=== PATIENT | female | born 1950 | race Caucasian/White ===

== ENCOUNTER 2019-06-18 15:31 | Inpatient (IN) | payer MEDICARE, OTHER ==
[~2019-06-18] VITALS: Ht 160 cm; Wt 96.3 kg
[2019-06-18] MEDS ORDERED: NS IV 1000 ML 1,000 ML IV SCH ×3 (16:08→20:45)
[2019-06-18] MEDS ORDERED: morphine INJ 10 MG/ML 1ML (SYR OR VIAL) IVP STA (16:08)
--- NOTE | 2019-06-18 16:15 | ED Cardiac General ---
History of Present Illness General Chief Complaint: Chest Pain Stated Complaint: CHEST PAIN Nursing Triage Note: Chest pain started approximately 3 hours ago. Is sometimes sharp through the chest with pressure and radiates down left arm. Had similar symptoms several years ago when she had a stent put in. History of Present Illness Date Seen by Provider: Jun 18, 2019 Time Seen by Provider: 15:50 Initial Comments The patient is a 69-year-old female with a history of hypertension, hyperlipidemia, coronary artery disease with a stent in place, prediabetes. She presents with concern for 3 hours of waxing and waning left upper back discomfort with radiation around to the left upper chest and down the left arm, with associated generalized substernal chest pressure. Symptoms had onset while the patient was at rest, sitting down at home. Symptoms are a 7-8/10 in severity at present. Patient states they feel exactly like the "heart pain" she had here a few years ago before she was sent downt to [place] and was stented. Associated nausea without vomiting. No associated fevers, cough, shortness of breath, midline interscapular back pain which is ripping or tearing in character, cold sweats or chills, abdominal pain, flank pain. Vital signs are generally reassuring aside from some hypertension here in the emergency department. EKG obtained from triage appears nonischemic. Allergies and Home Medications Allergies Coded Allergies: No Known Drug Allergies (Unverified , 06/18/19) Patient Home Medication List Home Medication List Reviewed: Yes Review of Systems Review of Systems Constitutional: see HPI All Other Systems Reviewed Negative Unless Noted: Yes (Negative excepted noted.) Past Xjqkpmd-Oexjuy-Iytavi Hx Past Med/Social Hx: Reviewed Nursing Past Med/Soc Hx Patient Social History Recent Foreign Travel: No Contact w/Someone Who Travel: No Recent Infectious Disease Expo: No Family Medical History Reviewed Nursing Family Hx Physical Exam Vital Signs Vital Signs - First Documented 06/18/19 15:40 Temp 36.2 Pulse 74 Resp 20 B/P (MAP) 173/73 (106) Pulse Ox 95 Capillary Refill : Less Than 3 Seconds Height, Weight, BMI Height: '" Weight: lbs. oz. kg; 38.00 BMI Method: General Appearance: No Apparent Distress Other comments This is an older female appearing nontoxic and in no acute distress. Head is normocephalic and atraumatic. Neck is supple and nontender. Oropharynx is moist. Lungs are clear to auscultation in all stations. There is a normal S1 and S2 without rubs or gallops and capillary refill is appropriate, less than 2 seconds globally. There is no pulse deficit with 2+ pulses to the bilateral upper and lower extremities. Abdomen is soft, nontender and nondistended with no pulsatile mass noted. Skin is warm and dry without cyanosis, clubbing or edema. Psychiatrically, the patient didn't straights appropriate mood and affect and is alert. Progress/Results/Core Measures Results/Orders Lab Results Laboratory Tests Test 06/18/19 15:46 Range/Units White Blood Count 12.1 H 4.3-11.0 10^3/uL Red Blood Count 4.69 4.35-5.85 10^6/uL Hemoglobin 12.9 11.5-16.0 G/DL Hematocrit 41 35-52 % Mean Corpuscular Volume 87 80-99 FL Mean Corpuscular Hemoglobin 28 25-34 PG Mean Corpuscular Hemoglobin Concent 32 32-36 G/DL Red Cell Distribution Width 15.7 H 10.0-14.5 % Platelet Count 416 H 130-400 10^3/uL Mean Platelet Volume 9.2 7.4-10.4 FL Neutrophils (%) (Auto) 68 42-75 % Lymphocytes (%) (Auto) 18 12-44 % Monocytes (%) (Auto) 9 0-12 % Eosinophils (%) (Auto) 4 0-10 % Basophils (%) (Auto) 1 0-10 % Neutrophils # (Auto) 8.3 H 1.8-7.8 X 10^3 Lymphocytes # (Auto) 2.2 1.0-4.0 X 10^3 Monocytes # (Auto) 1.0 0.0-1.0 X 10^3 Eosinophils # (Auto) 0.5 H 0.0-0.3 10^3/uL Basophils # (Auto) 0.1 0.0-0.1 10^3/uL Prothrombin Time 13.0 12.2-14.7 SEC INR Comment 1.0 0.8-1.4 Activated Partial Thromboplast Time 28 24-35 SEC Sodium Level 139 135-145 MMOL/L Potassium Level 4.3 3.6-5.0 MMOL/L Chloride Level 100 98-107 MMOL/L Carbon Dioxide Level 26 21-32 MMOL/L Anion Gap 13 5-14 MMOL/L Blood Urea Nitrogen 17 7-18 MG/DL Creatinine 0.88 0.60-1.30 MG/DL Estimat Glomerular Filtration Rate > 60 BUN/Creatinine Ratio 19 Glucose Level 103 70-105 MG/DL Calcium Level 9.5 8.5-10.1 MG/DL Corrected Calcium 9.5 8.5-10.1 MG/DL Total Bilirubin 0.4 0.1-1.0 MG/DL Aspartate Amino Transf (AST/SGOT) 14 5-34 U/L Alanine Aminotransferase (ALT/SGPT) 16 0-55 U/L Alkaline Phosphatase 95 40-136 U/L Troponin I < 0.30 <0.30 NG/ML Pro-B-Type Natriuretic Peptide 57.3 <75.0 PG/ML Total Protein 7.2 6.4-8.2 GM/DL Albumin 4.0 3.2-4.5 GM/DL My Orders Orders - YA RODRIGUEZ MD Cbc With Automated Diff (06/18/19 15:45) Comprehensive Metabolic Panel (06/18/19 15:45) Troponin I Fs (06/18/19 15:45) Ekg Tracing (06/18/19 15:45) Chest 1 View Ap/Pa Only (06/18/19 15:45) Probnp Fs (06/18/19 15:45) Protime With Inr (06/18/19 15:45) Partial Thromboplastin Time (06/18/19 15:45) Morphine Injection (Morphine Injection (06/18/19 16:08) Ed Iv/Invasive Line Start (06/18/19 16:08) Ns Iv 1000 Ml (Sodium Chloride 0.9%) (06/18/19 16:08) Nitroglycerin 0.4 Mg Btl 25's (Nitrostat (06/18/19 16:30) Ct Angio Chest W (06/18/19 16:18) Ondansetron Injection (Zofran Injectio (06/18/19 16:21) Ondansetron Injection (Zofran Injectio (06/18/19 16:30) Iohexol Injection (Omnipaque 350 Mg/Ml 1 (06/18/19 16:45) Received Contrast (Hold Metformin- Contr (06/18/19 16:45) Ns (Ivpb) (Sodium Chloride 0.9% Ivpb Bag (06/18/19 16:45) Ns Iv 1000 Ml (Sodium Chloride 0.9%) (06/18/19 17:06) Nitro Drip 89357 Mcg/D5w (Nitroglycerin (06/18/19 17:06) Medications Given in ED Current Medications Medications Dose Ordered Sig/Mary Route Start Time Stop Time Status Last Admin Dose Admin Iohexol 125 ml ONCE ONCE IV 06/18/19 16:45 06/18/19 16:46 DC 06/18/19 16:45 125 ML Nitroglycerin 1 TAB Q 5 MIN X 3 NEEDED PRN SL 06/18/19 16:30 06/18/19 16:53 0.4 MG Ondansetron HCl 4 mg ONCE ONCE IVP 06/18/19 16:30 06/18/19 16:31 DC 06/18/19 16:28 4 MG Sodium Chloride 100 ml ONCE ONCE IV 06/18/19 16:45 06/18/19 16:46 DC 06/18/19 16:45 80 ML Vital Signs/I&O 06/18/19 06/18/19 15:40 17:26 Temp 36.2 Pulse 74 56 Resp 20 B/P (MAP) 173/73 (106) Pulse Ox 95 Blood Pressure Mean: 106 POS Progress Progress Note : Time: 16:15 Progress Note Older female with known coronary artery disease status post stenting 3 years ago and [place] and without close cardiology follow-up since that time presents with an episode of concerning left scapular and left upper chest and left arm discomfort with associated substernal chest pressure which she states feels just like the anginal chest pain she had 3 years ago. Associated nausea. Hypertensive here. We will check labs and EKG and chest x-ray and will obtain CT angiography of the chest to rule out dissection given back pain and hypertension although low suspicion for this at this time based on overall clinical picture. Patient took an aspirin prior to arrival today. We'll give nitroglycerin sublingually and small dose of morphine and we'll then reevaluate. Update 1700: Workup unremarkable and reassuring including negative cardiac biomarkers. Patient had transient relief of discomfort with sublingual nitroglycerin and a small dose of morphine but pain is now back and is rather severe. We are still pending CT results at this time. Case discussed with Dr. Bojorquez who recommends nitroglycerin drip and additional IV fluids and admission to [place] -- patient will need the ICU due to nitro drip. Case is discussed with Dr. Boyer (Pineda is PCP) who graciously accepts for [facility] group ICU admission to [place]. Family updated on findings of workup and plan for admission and understand and agree in all questions are answered. We'll proceed with transfer as soon as CT results are back. Update 1750: CT aortogram negative for dissection, aneurysm or other acute abnormality. Pain at a 2/10 on nitro gtt, much improved. Stable for transport via EMS to [place] as per plan above. Comment Sinus rhythm, rate 72, no acute ST elevation or depression, ME 178, QRS 92, QTC 390, EP interpretation. Diagnostic Imaging Comments PROCEDURE: CT angiography of the chest with contrast. TECHNIQUE: Multiple contiguous axial images were obtained through the chest after uneventful bolus administration of intravenous contrast. 3D reconstructed CTA MIP acquisitions were also performed. Auto Exposure Controls were utilized during the CT exam to meet ALARA standards for radiation dose reduction. INDICATION: Chest pain. COMPARISON: There are no prior CTA examinations available for comparison. FINDINGS: The plain film examination of the chest performed prior to this study at 4:17 PM failed to show any sign of an acute cardiopulmonary abnormality. On this exam, there is no defect within the pulmonary arteries to indicate a pulmonary embolus. The smaller branches of the pulmonary arteries to the right lower lobes, however, are not well opacified and difficult to assess. The aorta is not abnormally dilated. There is no sign of a dissection. The heart size is within normal limits. The lungs are generally clear. There is no evidence for failure, pneumonia or for a pleural effusion. There is mild dependent atelectasis in each lung base. There is no mediastinal or hilar adenopathy. The thyroid gland is not enlarged but there is a 1 cm low-density nodule in the right lobe. Ultrasound would be recommended for further study. There is no obvious breast mass. The sections through the upper abdomen failed to show any sign of an acute abnormality. There are several rounded areas of low density within the liver. The largest of these is in the left lobe and measures approximately 3.5 cm. I suspect that these findings are cysts. Ultrasound should be considered to confirm this. The bone windows show no evidence for a fracture or for a destructive lesion. IMPRESSION: 1. There is no evidence for a pulmonary embolus, although the pulmonary artery branches to the lower extremities are not well opacified and difficult to evaluate. 2. The aorta is not abnormally dilated and there is no sign of a dissection. 3. There is no acute cardiopulmonary abnormality noted otherwise. 4. Ultrasound would be recommended for further evaluation of the area of low density in the right lobe of the thyroid. Ultrasound should also be performed to better evaluate the suspected cysts within the liver. Dictated on workstation # [id number] Departure Impression Primary Impression: Unstable angina Disposition: 09 ADMITTED INPATIENT Condition: Stable YA RODRIGUEZ MD Jun 18, 2019 16:15 POS
[2019-06-18] MEDS ORDERED: ONDANSETRON 4 MG/2 ML (SDV) Z0FRAN ONE (16:21)
[2019-06-18] MEDS: NITROGLYCERIN 0.4 MG SL TABS BTL 25'S SL PRN ×2 (16:24→16:53)
[2019-06-18 16:27] LABS: HEMATOCRIT 41 % (35-52); HEMOGLOBIN 12.9 G/DL (11.5-16.0); LYMPHOCYTES % (AUTO) 18 % (12-44); MEAN CORPUSCULAR HEMOGLOBIN 28 PG (25-34); MEAN CORPUSCULAR HGB CONC 32 G/DL (32-36); MEAN CORPUSCULAR VOLUME 87 FL (80-99); MEAN PLATELET VOLUME 9.2 FL (7.4-10.4); NEUTROPHILS % (AUTO) 68 % (42-75); PLATELET COUNT 416 10^3/uL (130-400); RED CELL DISTRIBUTION WIDTH 15.7 % (10.0-14.5); WHITE BLOOD COUNT 12.1 10^3/uL (4.3-11.0)
[2019-06-18 16:28] LABS: BASOPHILS # (AUTO) 0.1 10^3/uL (0.0-0.1); BASOPHILS % (AUTO) 1 % (0-10); EOSINOPHILS # (AUTO) 0.5 10^3/uL (0.0-0.3); EOSINOPHILS % (AUTO) 4 % (0-10); LYMPHOCYTES # (AUTO) 2.2 X 10^3 (1.0-4.0); MONOCYTES % (AUTO) 9 % (0-12); NEUTROPHILS # (AUTO) 8.3 X 10^3 (1.8-7.8)
[2019-06-18] MEDS ORDERED: ONDANSETRON 4 MG/2 ML (SDV) Z0FRAN IVP ONE (16:30)
--- NOTE | 2019-06-18 16:32 | Diagnostic Imaging Report ---
PATIENT HISTORY: Chest pain. TECHNIQUE: Single frontal view of the chest. COMPARISON: None. FINDINGS: The lung volumes are normal. Haziness over the lung bases is thought to be due to overlying soft tissue. No focal consolidation is seen. No large pleural effusion or pneumothorax is seen. The cardiomediastinal silhouette is normal in size and contour. No acute osseous abnormality is seen. IMPRESSION: Haziness over the lung bases is thought to be due to overlying soft tissue. No acute pulmonary abnormality seen. Dictated by: Dictated on workstation # [id number]
[2019-06-18] MEDS ORDERED: NS 100 ML (IVPB) BAG IV ONE (16:45)
[2019-06-18] MEDS ORDERED: HOLD METFORMIN - RECEIVED CONTRAST 20 ML VIAL IV SCH (16:45)
[2019-06-18] MEDS ORDERED: IOHEXOL 350 MG/ML 150 ML (OMNIPAQUE 350) VIAL IV ONE (16:45)
[2019-06-18 16:57] LABS: BILIRUBIN,TOTAL 0.4 MG/DL (0.1-1.0); BUN/CREATININE RATIO 19; CALCIUM 9.5 MG/DL (8.5-10.1); CARBON DIOXIDE 26 MMOL/L (21-32); CHLORIDE 100 MMOL/L (98-107); CREATININE SERUM 0.88 MG/DL (0.60-1.30); GFR ESTIMATED > 60; GLUCOSE 103 MG/DL (70-105); POTASSIUM 4.3 MMOL/L (3.6-5.0); SODIUM 139 MMOL/L (135-145)
[2019-06-18 16:58] LABS: ALANINE AMINOTRANSFERASE 16 U/L (0-55); ALKALINE PHOSPHATASE 95 U/L (40-136); TOTAL PROTEIN 7.2 GM/DL (6.4-8.2)
[2019-06-18] MEDS ORDERED: NITRO DRIP 25000 MCG/D5W 250 ML IV STA (17:06)
--- NOTE | 2019-06-18 17:47 | Diagnostic Imaging Report ---
PROCEDURE: CT angiography of the chest with contrast. TECHNIQUE: Multiple contiguous axial images were obtained through the chest after uneventful bolus administration of intravenous contrast. 3D reconstructed CTA MIP acquisitions were also performed. Auto Exposure Controls were utilized during the CT exam to meet ALARA standards for radiation dose reduction. INDICATION: Chest pain. COMPARISON: There are no prior CTA examinations available for comparison. FINDINGS: The plain film examination of the chest performed prior to this study at 4:17 PM failed to show any sign of an acute cardiopulmonary abnormality. On this exam, there is no defect within the pulmonary arteries to indicate a pulmonary embolus. The smaller branches of the pulmonary arteries to the right lower lobes, however, are not well opacified and difficult to assess. The aorta is not abnormally dilated. There is no sign of a dissection. The heart size is within normal limits. The lungs are generally clear. There is no evidence for failure, pneumonia or for a pleural effusion. There is mild dependent atelectasis in each lung base. There is no mediastinal or hilar adenopathy. The thyroid gland is not enlarged but there is a 1 cm low-density nodule in the right lobe. Ultrasound would be recommended for further study. There is no obvious breast mass. The sections through the upper abdomen failed to show any sign of an acute abnormality. There are several rounded areas of low density within the liver. The largest of these is in the left lobe and measures approximately 3.5 cm. I suspect that these findings are cysts. Ultrasound should be considered to confirm this. The bone windows show no evidence for a fracture or for a destructive lesion. IMPRESSION: 1. There is no evidence for a pulmonary embolus, although the pulmonary artery branches to the lower extremities are not well opacified and difficult to evaluate. 2. The aorta is not abnormally dilated and there is no sign of a dissection. 3. There is no acute cardiopulmonary abnormality noted otherwise. 4. Ultrasound would be recommended for further evaluation of the area of low density in the right lobe of the thyroid. Ultrasound should also be performed to better evaluate the suspected cysts within the liver. Dictated by: Dictated on workstation # [id number]
[2019-06-18 20:15] VITALS: BP 99/59
[2019-06-18] MEDS ORDERED: NS IV 1000 ML 1,000 ML ONE (20:28)
[2019-06-18] MEDS ORDERED: ONDANSETRON 4 MG (ZOFRAN) ORAL DISSOLVE TAB PO PRN (20:45)
[2019-06-18] MEDS ORDERED: morphine INJ 4 MG/ML 1 ML (VIAL/SYRINGE) IV PRN (20:45)
[2019-06-18 21:00] VITALS: BP 92/61
[2019-06-18 22:00] VITALS: BP 123/68
[2019-06-18] MEDS: ACETAMINOPHEN 325 MG TABLET PO PRN (22:06)
[2019-06-18 23:00] VITALS: BP 105/54
[2019-06-19] VITALS (16 sets, daily range): BP systolic 102–144; BP diastolic 59–81
[2019-06-19] MEDS: ACETAMINOPHEN 325 MG TABLET PO PRN ×2 (03:26→13:54)
--- NOTE | 2019-06-19 03:35 | Pulmonary Consultation ---
LILIANE MICHAUD MEDICAL STUDENT 06/19/19 0335: History of Present Illness History of Present Illness Date of Consultation 06/19/19 03:29 Time Seen by Provider: 03:29 Date of Admission History of Present Illness 69 year old female with PMHx of HTN, HLD, CAD with stent placement, admitted from the ED yesterday substernal chest pain and back pressure that radiated around to her left chest and down her left arm that improved with nitro. Pt states that the pain felt similar to when she had to have a heart stent placed 6 years ago. Pt was found to be hypertenisve in the ED and cardiology was consulted who recommended putting the patient on NTG drip. Pt states that the chest pain has improved after the nitro drip was started but she has continued to have back pressure. She states that the pressure has gotten a little bit better after the nitro drip but has still been there. Pt admits nausea yesterday but has not had any since. Pt denies any SOB, abd pain, V/D, increased swelling. CT chest was done yesterday which was negative for PE or dissection. Allergies and Home Medications Allergies Coded Allergies: No Known Drug Allergies (Unverified , 06/18/19) Past Izapdwz-Bdxnzv-Tjkdat Hx Past Med/Social Hx: Reviewed Nursing Past Med/Soc Hx Patient Social History Alcohol Use: Denies Use Recreational Drug Use: No Smoking Status: Former Smoker Type Used: Cigarettes Former Smoker, Quit: Jun 02, 2013 2nd Hand Smoke Exposure: No Recent Foreign Travel: No Contact w/Someone Who Travel: No Recent Infectious Disease Expo: No Recent Hopitalizations: No Physical Abuse: No Sexual Abuse: No Mistreated: No Fear: No Immunizations Up To Date Date of Pneumonia Vaccine: Jun 02, 2019 Date of Influenza Vaccine: Jun 02, 2019 Seasonal Allergies Seasonal Allergies: No Past Medical History Surgeries: Yes Section, Coronary Stent, Hysterectomy Respiratory: No Cardiac: Yes High Cholesterol, Hypertension Neurological: No [employer] History: Hysterectomy Genitourinary: No Gastrointestinal: No Musculoskeletal: No Endocrine: No HEENT: No Cancer: No Psychosocial: No Integumentary: No Family Medical History Reviewed Nursing Family Hx Review of Systems Constitutional: No: Fever, Chills Eyes: No: Pain ENT: No: Ear pain Respiratory: No: Cough, Shortness of breath Cardiovascular: Chest Pain Gastrointestinal: No: Nausea, Vomiting, Diarrhea Genitourinary: No Dysuria Musculoskeletal: back pain; No: neck pain Skin: No: Rash Neurological: No: Weakness, Numbness Sepsis Event Evaluation Height, Weight, BMI Height: '" Weight: lbs. oz. kg; 38.82 BMI Method: Exam Exam Vital Signs Date Time Temp Pulse Resp B/P (MAP) Pulse Ox O2 Delivery O2 Flow Rate FiO2 06/19/19 00:00 36.7 06/19/19 00:00 Room Air 06/18/19 21:36 52 06/18/19 21:00 53 12 92/61 (71) 98 Room Air 06/18/19 20:16 36.2 06/18/19 20:15 52 21 99/59 (72) 96 Room Air 06/18/19 20:15 93 Room Air 06/18/19 18:55 36.5 53 15 114/60 97 06/18/19 17:26 56 06/18/19 15:40 36.2 74 20 173/73 (106) 95 I & O 06/19/19 07:00 Intake Total 2150 ml Output Total 600 ml Balance 1550 ml Height & Weight Height: '" Weight: lbs. oz. kg; 38.82 BMI Method: General Appearance: No Apparent Distress, WD/WN HEENT: PERRL/EOMI Neck: Full Range of Motion Respiratory: Chest Non Tender, Lungs Clear, Normal Breath Sounds, No Accessory Muscle Use, No Respiratory Distress Cardiovascular: Regular Rate, Rhythm, No Edema, No Gallop, No JVD, No Murmur, Normal Peripheral Pulses Capillary Refill: Less Than 3 Seconds Peripheral Pulses: 2+ Dorsalis Pedis (R), 2+ Left Dors-Pedis (L), 2+ Radial Pulses (R), 2+ Radial Pulses (L) Gastrointestinal: normal bowel sounds, non tender, soft Extremity: Normal Inspection, Normal Range of Motion, No Pedal Edema Neurologic/Psychiatric: Alert, Oriented x3, No Motor/Sensory Deficits, Normal Mood/Affect Skin: Normal Color, Warm/Dry Lymphatic: No Adenopathy Results Lab Laboratory Tests 06/18/19 15:46 Assessment/Plan Assessment/Plan Chest pain -CT chest showed no PE or dissection -troponin x 2 negative -appreciate cardiology recommendations Hypertension -pt was given 2 NTG in ED and was started on NTG drip at 10cc.hr -bp became in the 90's systolic and drip was decreased to 5cc/hr -bp now 130's systolic history of CAD BING MATA DO 06/19/19 0638: History of Present Illness History of Present Illness Time Seen by Provider: 06:33 History of Present Illness 69yo with hx of CAD, HTN presented to ED seocndary to worsening persistent CP. pt is currently being monitored in ICU on NTG gtt. Allergies and Home Medications Allergies Coded Allergies: No Known Drug Allergies (Unverified , 06/18/19) Assessment/Plan Assessment/Plan Chest pain -CT chest showed no PE or dissection -troponin x 2 negative -Cardiology consulted Probable COPD -Quit smoking 7yrs ago -Check ambulatory desat test prior to discharge. Hypertension -Currently on NTG drip at 10cc.hr history of CAD LILIANE MICHAUD MEDICAL STUDENT Jun 19, 2019 03:35 BING SOUTH DO Jun 19, 2019 06:38 POS
[2019-06-19 06:25] LABS: BASOPHILS % (AUTO) 0 % (0-10); EOSINOPHILS # (AUTO) 0.4 10^3/uL (0.0-0.3); EOSINOPHILS % (AUTO) 4 % (0-10); HEMATOCRIT 37 % (35-52); HEMOGLOBIN 11.1 G/DL (11.5-16.0); LYMPHOCYTES # (AUTO) 1.9 X 10^3 (1.0-4.0); LYMPHOCYTES % (AUTO) 18 % (12-44); MEAN CORPUSCULAR HEMOGLOBIN 27 PG (25-34); MEAN CORPUSCULAR HGB CONC 30 G/DL (32-36); MEAN CORPUSCULAR VOLUME 87 FL (80-99); MEAN PLATELET VOLUME 8.7 FL (7.4-10.4); MONOCYTES # (AUTO) 1.1 X 10^3 (0.0-1.0); MONOCYTES % (AUTO) 11 % (0-12); NEUTROPHILS # (AUTO) 6.9 X 10^3 (1.8-7.8); NEUTROPHILS % (AUTO) 66 % (42-75); PLATELET COUNT 354 10^3/uL (130-400); RED CELL DISTRIBUTION WIDTH 16.2 % (10.0-14.5); WHITE BLOOD COUNT 10.4 10^3/uL (4.3-11.0)
[2019-06-19 06:43] LABS: BUN/CREATININE RATIO 19; CALCIUM 8.6 MG/DL (8.5-10.1); CARBON DIOXIDE 23 MMOL/L (21-32); CHLORIDE 110 MMOL/L (98-107); CREATININE SERUM 0.78 MG/DL (0.60-1.30); GFR ESTIMATED > 60; GLUCOSE 101 MG/DL (70-105); PHOSPHORUS 3.8 MG/DL (2.3-4.7); SODIUM 139 MMOL/L (135-145)
--- NOTE | 2019-06-19 07:05 | Diagnostic Imaging Report ---
EXAMINATION: Chest 1 view HISTORY: Shortness of breath FINDINGS: Comparison is 06/18/2019. There is mild atelectasis in the right base. Otherwise, the lungs are clear without edema or pneumonia. No pleural effusion or pneumothorax. Heart size is normal. IMPRESSION: 1. Mild atelectasis, otherwise clear lungs. Dictated by: Dictated on workstation # [id number]
--- NOTE | 2019-06-19 08:17 | Consultation-Cardiology ---
HPI-Cardiology Cardiology Consultation Date of Consultation 06/19/19 Date of Admission Time Seen by Provider: 08:14 Indication: chest pain HPI 69-year-old lady with history of coronary artery disease stent about 3 years ago, was doing well until yesterday when she started to have chest pain, described as dull achiness on the left upper chest and back and left shoulder start radiating to the left arm, reported that it was very similar to the pain that she had prior to her stent 3 years ago. Came into the emergency room given sublingual nitroglycerin and had some improvement of her chest pain. Pain returned, she was started on nitroglycerin drip and reported improvement in the pain. Currently still on nitroglycerin drip. No palpitation. No syncope or near syncopal episodes Home Medications & Allergies Allergies: Coded Allergies: No Known Drug Allergies (Unverified , 06/18/19) Home Medication List Reviewed: Yes [id number] Hx Patient Social History Marital Status: Alcohol Use: Denies Use Recreational Drug Use: No Smoking Status: Former Smoker Type Used: Cigarettes 2nd Hand Smoke Exposure: No Recent Foreign Travel: No Recent Infectious Disease Expo: No Recent Hopitalizations: No Immunizations Up To Date Date of Pneumonia Vaccine: Jun 02, 2019 Date of Influenza Vaccine: Jun 02, 2019 Past Medical History discussed below Family Medical History Family Medical Hx family history of heart disease Review of Systems-General Review of Systems Constitutional: no symptoms reported, see HPI EENTM: see HPI, no symptoms reported Respiratory: see HPI; No cough; dyspnea on exertion; No hemoptysis, No orthopnea, No phlegm, No short of breath, No stridor, No wheezing, No other Cardiovascular: see HPI, chest pain; No edema, No Hx of Intervention, No palpitations, No syncope, No vascular heart diseas, No other Gastrointestinal: no symptoms reported, see HPI Genitourinary: no symptoms reported, see HPI Musculoskeletal: no symptoms reported, see HPI Skin: no symptoms reported, see HPI Psychiatric/Neurological: No Symptoms Reported, See HPI All Other Systems Reviewed Negative Unless Noted: Yes (Negative excepted noted.) Reviewed Test Results Reviewed Test Results Lab Laboratory Tests Test 06/18/19 15:46 06/18/19 21:54 06/19/19 06:10 Range/Units White Blood Count 12.1 H 10.4 4.3-11.0 10^3/uL Red Blood Count 4.69 4.18 L 4.35-5.85 10^6/uL Hemoglobin 12.9 11.1 L 11.5-16.0 G/DL Hematocrit 41 37 35-52 % Mean Corpuscular Volume 87 87 80-99 FL Mean Corpuscular Hemoglobin 28 27 25-34 PG Mean Corpuscular Hemoglobin Concent 32 30 L 32-36 G/DL Red Cell Distribution Width 15.7 H 16.2 H 10.0-14.5 % Platelet Count 416 H 354 130-400 10^3/uL Mean Platelet Volume 9.2 8.7 7.4-10.4 FL Neutrophils (%) (Auto) 68 66 42-75 % Lymphocytes (%) (Auto) 18 18 12-44 % Monocytes (%) (Auto) 9 11 0-12 % Eosinophils (%) (Auto) 4 4 0-10 % Basophils (%) (Auto) 1 0 0-10 % Neutrophils # (Auto) 8.3 H 6.9 1.8-7.8 X 10^3 Lymphocytes # (Auto) 2.2 1.9 1.0-4.0 X 10^3 Monocytes # (Auto) 1.0 1.1 H 0.0-1.0 X 10^3 Eosinophils # (Auto) 0.5 H 0.4 H 0.0-0.3 10^3/uL Basophils # (Auto) 0.1 0.0 0.0-0.1 10^3/uL Prothrombin Time 13.0 12.2-14.7 SEC INR Comment 1.0 0.8-1.4 Activated Partial Thromboplast Time 28 24-35 SEC Sodium Level 139 139 135-145 MMOL/L Potassium Level 4.3 4.0 3.6-5.0 MMOL/L Chloride Level 100 110 #H 98-107 MMOL/L Carbon Dioxide Level 26 23 21-32 MMOL/L Anion Gap 13 6 5-14 MMOL/L Blood Urea Nitrogen 17 15 7-18 MG/DL Creatinine 0.88 0.78 0.60-1.30 MG/DL Estimat Glomerular Filtration Rate > 60 > 60 BUN/Creatinine Ratio 19 19 Glucose Level 103 101 70-105 MG/DL Calcium Level 9.5 8.6 8.5-10.1 MG/DL Corrected Calcium 9.5 8.5-10.1 MG/DL Total Bilirubin 0.4 0.1-1.0 MG/DL Aspartate Amino Transf (AST/SGOT) 14 5-34 U/L Alanine Aminotransferase (ALT/SGPT) 16 0-55 U/L Alkaline Phosphatase 95 40-136 U/L Troponin I < 0.30 < 0.028 < 0.028 <0.028 NG/ML Pro-B-Type Natriuretic Peptide 57.3 <75.0 PG/ML Total Protein 7.2 6.4-8.2 GM/DL Albumin 4.0 3.2-4.5 GM/DL Phosphorus Level 3.8 2.3-4.7 MG/DL Magnesium Level 2.0 1.6-2.4 MG/DL Physical Exam Physical Exam Vital Signs Vital Signs - First Documented 06/18/19 15:40 Temp 36.2 Pulse 74 Resp 20 B/P (MAP) 173/73 (106) Pulse Ox 95 Capillary Refill : Less Than 3 Seconds Height, Weight, BMI Height: '" Weight: lbs. oz. kg; 38.82 BMI Method: General Appearance: No Apparent Distress, WD/WN Eyes: Bilateral Eye Normal Inspection, Bilateral Eye PERRL, Bilateral Eye EOMI HEENT: PERRL/EOMI Neck: Full Range of Motion Respiratory: Chest Non Tender, Lungs Clear, Normal Breath Sounds, No Accessory Muscle Use, No Respiratory Distress Cardiovascular: Regular Rate, Rhythm, No Edema, No Gallop, No JVD, No Murmur, Normal Peripheral Pulses Gastrointestinal: Normal Bowel Sounds, No Organomegaly, No Pulsatile Mass, Non Tender, Soft Back: Normal Inspection, No CVA Tenderness, No Vertebral Tenderness Extremity: Normal Inspection, Normal Range of Motion, No Pedal Edema Neurologic/Psychiatric: Alert, Oriented x3, No Motor/Sensory Deficits, Normal Mood/Affect Skin: Normal Color, Warm/Dry Lymphatic: No Adenopathy A/P-Cardiology Admission Diagnosis Unstable angina Coronary artery disease Hypertension Hyperlipidemia Assessment/Plan Chest pain resembling angina, unstable angina, currently on nitroglycerin drip, EKG did not show any acute changes, and planning to proceed with cardiac catheterization possible PTCA Coronary artery disease, history of stent in the past. Try to obtain copy of her records Hypertension, monitor blood pressure Hyperlipidemia, monitor lipids Borderline diabetes. Clinical Quality Measures AMI/AHF: ASA po Prior to arrival: Yes DVT/VTE Risk/Contraindication: Risk Factor Score Per Nursin RFS Level Per Nursing on Admit: 3=High GALLO HENDRIX MD Jun 19, 2019 08:17 POS
--- NOTE | 2019-06-19 08:20 | Cardiac Procedure Note-CS/ASA ---
Pre-Procedure Note Pre-Op Procedure Note H&P Reviewed The H&P was reviewed, patient examined and no changes noted. Date H&P Reviewed: Jun 19, 2019 Time H&P Reviewed: 08:20 Conscious Sedation Pre-Proced Time 08:20 ASA Score 3 For ASA 3 and 4: Consider anesthesia and medical clearance. Also, for patients with a history of failed moderate sedation consider anesthesia. Airway Lungs Heart ASA score ASA 1: a normal healthy patient ASA 2: a patient with a mild systemic disease (mid diabetes, controlled hypertension, obesity x ASA 3: a patient with a severe systemic disease that limits activity (angina, COPD, prior Myocardial infarction) ASA 4: a patient with an incapacitating disease that is a constant threat to life (CHF, renal failure) ASA 5: a moribund patient not expected to survive 24 hrs. (ruptured aneurysm) ASA 6: a declared brain- patient whose organs are being harvested. For emergent operations, add the letter E after the classification Mallampati Classification Grade 3 Sedation Plan Analgesia, Amnesia, Plan communicated to team members, Discussed options with patient/fam, Discussed risks with patient/fam The patient is an appropriate candidate to undergo the planned procedure, sedation, and anesthesia. The patient immediately re-assessed prior to indication. GALLO HENDRIX MD Jun 19, 2019 08:20 POS
[2019-06-19] MEDS ORDERED: NS IV 1000 ML 1,000 ML IV SCH ×2 (08:30→11:17)
[2019-06-19] MEDS ORDERED: PANTOPRAZOLE 40 MG (PROTONIX) TAB PO SCH (09:00)
[2019-06-19] MEDS ORDERED: ASPIRIN E.C. 81 MG (ECOTRIN) TAB PO SCH (09:00)
[2019-06-19] MEDS ORDERED: HEParin (CATH LAB) 2,000 ML IV ONE (09:02)
[2019-06-19] MEDS ORDERED: LIDOCAINE 1% INJ 20 ML 20 ML VIAL ONE (09:02)
[2019-06-19] MEDS ORDERED: ATOR80TA76 PO (09:07)
[2019-06-19] MEDS ORDERED: ASPI325T32 PO (09:07)
[2019-06-19] MEDS ORDERED: CARV6.252 PO (09:07)
[2019-06-19] MEDS ORDERED: DULO60CA59 PO (09:07)
[2019-06-19] MEDS ORDERED: TR1C15 TOP (09:07)
[2019-06-19] MEDS ORDERED: MULT1TAB69 PO (09:07)
[2019-06-19] MEDS ORDERED: NAPR220T66 PO (09:07)
--- NOTE | 2019-06-19 09:09 | NUR ---
SPOKE WITH THE PATIENT ABOUT HER MEDICATIONS. SHE HAD HER THREE PRESCRIPTION BOTTLES WITH HER. WE WENT OVER THE EXT MED HX WELL. SHE TAKES THE FOLLOWING OTC: ASPIRIN 325MG DAILY [employer] DAILY ALEVE 1 PRN
--- NOTE | 2019-06-19 09:47 | History & Physical-Hospitalist ---
History of Present Illness HPI/Chief Complaint CC: Chest pain HPI: This is a 69yoWF presented with chest pain further risk stratification revealed the need for cardiac catheterization today and Dr. Bojorquez will be performingthat today. Pt currently denies any chest pain and her of nearly 50 years on July 02 of this year is at the bedside. Source: patient Date Seen 06/19/19 Time Seen by a Provider: 09:15 Attending Physician Cristóbal Boyer MD PCP Aron Sung MD Referring Physician Date of Admission Jun 18, 2019 at 18:14 Home Medications & Allergies Home Medications Reviewed patient Home Medication Reconciliation performed by pharmacy medication reconciliations quality assurance technician and/or nursing. Patients Allergies have been reviewed. Allergies Allergies Coded Allergies Tetanus Vaccines and Toxoid (Verified Allergy, Unknown, 06/19/19) lisinopril (Verified Allergy, Unknown, 06/19/19) Past [id number]-Pbpdzr Hx Past Med/Social Hx: Reviewed Nursing Past Med/Soc Hx, Reviewed and Corrections made Patient Social History Marrital Status: Alcohol Use: Denies Use Recreational Drug Use: No Smoking Status: Former Smoker Former Smoker, Quit: Jun 02, 2013 Type Used: Cigarettes 2nd Hand Smoke Exposure: No Recent Foreign Travel: No Contact w/other who traveled: No Recent Hopitalizations: No Recent Infectious Disease Expo: No Immunizations Up To Date Date of Pneumonia Vaccine: Jun 02, 2019 Date of Influenza Vaccine: Jun 02, 2019 Seasonal Allergies Seasonal Allergies: No Past Medical History Surgeries: Section, Coronary Stent, Hysterectomy Cardiac: High Cholesterol, Hypertension Hysterectomy Family History Reviewed Nursing Family Hx Review of Systems Constitutional: see HPI Cardiovascular: chest pain Physical Exam Physical Exam Vital Signs Vital Signs - First Documented 06/18/19 15:40 Temp 36.2 Pulse 74 Resp 20 B/P (MAP) 173/73 (106) Pulse Ox 95 Capillary Refill : Less Than 3 Seconds Height, Weight, BMI Height: '" Weight: lbs. oz. kg; 38.82 BMI Method: General Appearance: No Apparent Distress, Chronically ill, Obese Eyes: Right Eye Normal Inspection, Right Eye PERRL HEENT: PERRL/EOMI, Normal ENT Inspection, Pharynx Normal, Moist Mucous Membranes Neck: Full Range of Motion, Normal Inspection, Non Tender Respiratory: Chest Non Tender, Lungs Clear, Normal Breath Sounds, No Accessory Muscle Use, No Respiratory Distress Cardiovascular: Regular Rate, Rhythm, No Edema, No Gallop, No JVD, No Murmur, Normal Peripheral Pulses Gastrointestinal: Normal Bowel Sounds, No Organomegaly, No Pulsatile Mass, Non Tender, Soft Back: Normal Inspection, No CVA Tenderness, No Vertebral Tenderness Extremity: Normal Capillary Refill, Normal Inspection, Normal Range of Motion, Non Tender, No Calf Tenderness, No Pedal Edema Neurologic/Psychiatric: Alert, Oriented x3, No Motor/Sensory Deficits, Normal Mood/Affect Skin: Normal Color, Warm/Dry Lymphatic: No Adenopathy Results Results/Procedures Labs Laboratory Tests 06/18/19 15:46 06/19/19 06:10 Patient resulted labs reviewed. Assessment/Plan Admission Diagnosis Assessment: Chest pain HTN Risk factors for CAD Plan: Cath Monitor BP Admission Status: Observation Diagnosis/Problems Diagnosis/Problems (1) Other chest pain Status: Acute (2) Unstable angina Status: Acute Clinical Quality Measures AMI/AHF: ASA po Prior to arrival: Yes DVT/VTE Risk/Contraindication: Risk Factor Score Per Nursin RFS Level Per Nursing on Admit: 3=High WALLY VILLAR DO Jun 19, 2019 09:47 POS
[2019-06-19] MEDS ORDERED: NS IV 1000 ML 1,000 ML ONE (10:47)
[2019-06-19] MEDS ORDERED: MIDAZOLAM 5 MG/5 ML (VERSED) VIAL ONE (10:47)
[2019-06-19] MEDS ORDERED: fentaNYL INJECTION 100 MCG/2 ML AMP ONE (10:47)
[2019-06-19] MEDS ORDERED: ASPI-983 PO (11:19)
[2019-06-19] MEDS ORDERED: PANT40TA3 PO (11:19)
--- NOTE | 2019-06-19 11:24 | Discharge Inst-Post CATH ---
Discharge Inst-CATH/EP Problems Reviewed?: Yes Post Cardiac Cath/EP D/C Inst Follow Up/Plan Appointment with Dr. Bojorquez's office in 2-4 weeks <b>CARDIAC CATH/EP PROCEDURE DISCHARGE INSTRUCTIONS</b> ACTIVITY * Go Home directly and rest. * Limit activity of the leg (or wrist if it was used) for 7 days including aerobics, swimming, jogging, bicycling, etc. * Restrict stair-climbing for 7 days if possible, if not, climb up with your non-cath leg, then bring together on the same step. * Avoid lifting, pushing, pulling or excessive movement of the affected extremity for 7 days. * Customary sexual activity may be resumed after 2 days-use caution not to use a position that strains or causes pain to the affected extremity. * No driving for 24 hours. * NO SMOKING. * Avoid straining for bowel movements for 7 days. * Gentle walking on level ground is allowed. * Returning to work will depend on the type of procedure and the results. Your doctor will discuss this with you. CALL YOUR DOCTOR FOR ANY OF THE FOLLOWING: *If bleeding from the puncture site occurs- Apply gentle pressure to site with clean cloth and call your doctor or EMS. * If a knot or lump forms under the skin, increases in size, or causes pain. * If bruising appears to be worsening or moving further down your leg instead of disappearing. * Temperature above 101 F. CARE OF YOUR GROIN INCISION; * Bruising or purple discoloration of the skin near the puncture site is common. * You may shower only, no bathtub bathing for 5 days. Be careful to avoid slipping as your leg may feel stiff. * If a closure device was used on your femoral artery, please see the attached guide regarding care of the device and your leg. * Leave dressing on FOR 24 hours. CARE OF YOUR WRIST INCISION; * Bruising or purple discoloration of the skin near the puncture site is common. * You may shower. * DO NOT submerge wrist. * Leave dressing on FOR 24 hours. GALLO BOJORQUEZ MD Jun 19, 2019 11:24 am POS
--- NOTE | 2019-06-19 11:24 | Cardiac Cath Report ---
Cardiac Cath Report Physician (s)/Community Arts Worker (s) Physician GALLO HENDRIX MD Pre-Procedure Diagnosis Pre-Procedure Diagnosis: chest pain, coronary artery disease Post-Procedure Note Procedure Start Date: Jun 19, 2019 Name of Procedure: Left heart catheterization, left ventriculogram Findings/Procedure Note PROCEDURE NOTE: 69-year-old lady with history of coronary artery disease reporting history of stent in the past admitted with acute chest pain, was started on nitroglycerin drip, still having chest pain, decided to proceed with cardiac catheterization possible PTCA. After explaining the procedure to the patient, all pros and cons were explained, all questions were answered. The patient signed the consent and then she was placed on the cardiac catheterization laboratory. Groin was prepped SL fashion local anesthesia was used. Sheath placed in the right femoral artery. Arley left catheter was used for left carotid system, I used Adonay catheter to advance to the right coronary artery and angiogram was done, Arley right was crossed used to cross over to the left ventricle, pressure was measured, left ventricular gram was done, pullback LV to aorta was done. At the end of the procedure the sheath was removed. Closure device was used FINDINGS: Hemodynamics LV 126/19, end-diastolic pressure of 19 Aorta 139/64 mean of 95 ANATOMY: Left Main is free of obstructive disease Left Anterior Descending has mild disease nonobstructive disease Left Circumflex has mild disease nonobstructive disease Right Coronory Artery has mild disease nonobstructive disease LV Gram is normal in size with normal contractility estimated ejection fraction 60 percent CONCLUSION: 1. Mild coronary artery disease nonobstructive disease 2. Normal left ventricular size and systolic function estimated ejection fraction 60 percent DISCUSSION AND RECOMMENDATION: Chest pain is unlikely to be cardiac. I change her aspirin to 81 mg daily and started her on PPI. Okay to go home and follow-up as an outpatient Anesthesia Type: Conscious Sedation Estimated blood loss (mL): 25 ml Contrast Amount: 70 ml Total Radiation Dose: 430 mGy Post-Procedure Diagnosis Post-operative diagnosis: Chest pain Coronary artery disease Hypertension Hyperlipidemia GALLO HENDRIX MD Jun 19, 2019 11:24 POS
[2019-06-19] MEDS ORDERED: PATIENT MAY USE OWN MEDS, ALL PO SCH (11:30)
--- NOTE | 2019-06-19 17:04 | NUR ---
IV removed by this nurse, IV catheter tip intact. Gauze and tape applied. VSS. Patients and daughter are at bedside. Patients son-in-law is her ride home.
--- NOTE | 2019-06-19 17:13 | NUR ---
Patient leaving floor at 1713 via [facility], [employer] walking patient out. Patients family is with her,patient has gathered all of her belongings. Patient was complimentary of the care that she received here at [facility]. Patient states that all of her questions have been answered and that at this time she does not have any further questions. Follow up appointment scheduled for patient with , patient given follow up appointment date and time. Patient advised to schedule a 1 week follow up appointment with primary care provider per physician. Entire discharge packet discussed with patient. New medications, medications to continue and medications to stop all discussed with patient and her family.
--- NOTE | 2019-06-22 08:56 | Physician Query-Final Dx ---
JOSE JIMENES 06/22/19 0856: Final Diagnosis Give Final Diagnosis Please give Final Diagnosis GALLO HENDRIX MD 06/22/19 1733: Final Diagnosis Give Final Diagnosis please read my cardiac catheter report, I usually put the final diagnosis at the catheter report JOSE JIMENES Jun 22, 2019 08:56 POSGALLO HENDRIX MD Jun 22, 2019 17:33 POS
== END 2019-06-19 17:13 | disposition home or self-care (01) | DRG 287 ==
LOC: EDUNIT# 15:31 → ER FS 15:32 → ICU 18:14
PROVIDERS: ADMIT Internal Medicine; ATTEND Internal Medicine
PROC: 4A023N7 Measurement of Cardiac Sampling and Pressure, Left Heart, Percutaneous Approach (ICD-10-PCS; principal; 2019-06-19)
PROC: B2111ZZ Fluoroscopy of Multiple Coronary Arteries using Low Osmolar Contrast (ICD-10-PCS; 2019-06-19)
PROC: B2151ZZ Fluoroscopy of Left Heart using Low Osmolar Contrast (ICD-10-PCS; 2019-06-19)
DX: R07.89 Other chest pain (principal); I25.10 Atherosclerotic heart disease of native coronary artery without angina pectoris; I10 Essential (primary) hypertension; E78.5 Hyperlipidemia, unspecified; J44.9 Chronic obstructive pulmonary disease, unspecified; Z95.5 Presence of coronary angioplasty implant and graft; Z90.710 Acquired absence of both cervix and uterus; Z87.891 Personal history of nicotine dependence
CPT/HCPCS: 36415; 71045; 71275; 80048; 80053; 83735; 83880; 84100; 84484; 85025; 85610; 85730; 87081; 93005; 93306; 93458

== ENCOUNTER → 2019-07-04 | Outpatient (CLI) | payer MEDICARE ==
[~2019-07-04] MED LIST: ASPI-983 PO; ASPI325T32 PO; ATOR80TA76 PO; CARV6.252 PO; DULO60CA59 PO; MULT1TAB69 PO; NAPR220T66 PO; PANT40TA3 PO; TR1C15 TOP
--- NOTE | 2019-07-04 15:59 | Diagnostic Imaging Report ---
INDICATION: Lower left shoulder pain. TIME OF EXAM: 3:15 p.m. FINDINGS: Mild right convexity thoracic scoliotic curvature is noted. There is normal thoracic kyphotic curvature. Vertebral body heights are maintained. No acute compression fracture is identified. There is multilevel degenerative disc disease with variable disc space narrowing and marginal spurring. Paraspinous line is intact. IMPRESSION: Thoracic spondylosis and scoliosis. No acute bony abnormality is detected. Dictated by: Dictated on workstation # [id number]
== END ==
LOC: RAD FS 15:08
PROVIDERS: ATTEND Family Medicine
DX: M47.814 Spondylosis without myelopathy or radiculopathy, thoracic region (principal); M41.84 Other forms of scoliosis, thoracic region
CPT/HCPCS: 72072

== ENCOUNTER → 2021-08-04 | Outpatient (CLI) | payer MEDICARE ==
[~2021-08-04] MED LIST changes: +ASPI-1238 PO; -ASPI-983 PO; +MULT-567 PO; -MULT1TAB69 PO; -PANT40TA3 PO; +PANT40TA52 PO
== END ==
LOC: CARD 14:00
PROVIDERS: ATTEND Family Medicine
DX: I35.8 Other nonrheumatic aortic valve disorders (principal); I51.7 Cardiomegaly
CPT/HCPCS: 93306

== ENCOUNTER 2022-09-07 11:41 | Emergency (ER) | payer MEDICARE ==
[~2022-09-07] VITALS: Ht 165 cm; Wt 100.0 kg
[2022-09-07] MEDS ORDERED: NS IV 1000 ML 1,000 ML IV STA (11:51)
--- NOTE | 2022-09-07 11:55 | ED GI ---
General Chief Complaint: Abdominal/GI Problems Stated Complaint: BLOODY STOOL; ABD PAIN Source of Information: Patient, RN/MD (October from [facility]gent [facility]) History of Present Illness Date Seen by Provider: Sep 07, 2022 Time Seen by Provider: 11:48 Initial Comments 72-year-old female presenting with complaints of abdominal spasms and cramping since September 04. She has had constipation recently since starting Ozempic. She did take a stool softener on and had several bowel movements on Wednesday. Her bowel movements on Wednesday were mixed with blood and clots. She had spasm type pain in her low abdomen and left side just before she would have a bowel movement. She did not have any blood on Wednesday but then this morning after a bowel movement had some bright red blood when she wiped with tissue. She denies any nausea or vomiting. She has had no fever, chills, pain with urination, black tarry stool, rectal pain, dizziness, lightheadedness. She does take a low-dose baby aspirin every day but denies any stronger blood thinners. She takes occasional ibuprofen. She has a history of anal fissure and hemorrhoids but does not feel like those are currently active or flared up. She had gone to the urgent care walk-in clinic for [facility] this morning and they referred her here to the emergency department. The nurse practitioner October did call and discussed the patient with me and reviewed her findings from walk-in care. She was concerned that the patient needed more of a work-up than she could accomplish there in urgent care. Timing/Duration: 4-5 Days Severity/Quality: Moderate, Cramping Location: LLQ, Suprapubic Radiation: Other (throughout abdomen) Activities at Onset: None Modifying Factors: Worsens With Defecating (blood when having bowel movements, worse on Wednesday with blood mixed with stool but today bowel movement with bright red blood when she wiped with tissue after BM.) Associated Symptoms: No Back Pain, No Chest Pain, No Diaphoresis, No Fever/Chills, No Fatigue, No Headache, No Heartburn, No Nausea/Vomiting, No Rash, No Shortness of Air, No Swelling/Mass in Abdomen, No Syncope, No Weakness Allergies and Home Medications Allergies Coded Allergies: Tetanus Vaccines and Toxoid (Verified Allergy, Unknown, 06/19/19) lisinopril (Verified Allergy, Unknown, 06/19/19) Patient Home Medication List Home Medication List Reviewed: Yes Aspirin (Aspirin EC) 81 Mg Tablet.dr, 81 MG PO DAILY Prescribed by: GALLO HENDRIX on 06/19/19 1119 Atorvastatin Calcium (Atorvastatin Calcium) 80 Mg Tablet, 80 MG PO HS, (Reported) Entered as Reported by: RACHEL DOUGLASS on 06/19/19 09 Carvedilol (Carvedilol) 6.25 Mg Tablet, 6.25 MG PO BID, (Reported) Entered as Reported by: RACHEL DOUGLASS on 06/19/19 09 Dicyclomine HCl (Dicyclomine HCl) 10 Mg Capsule, 10 MG PO Q6H PRN for abdominal cramping/spasm Prescribed by: PATRICIO NICHOLS on 09/07/22 1437 Duloxetine HCl (Duloxetine HCl) 60 Mg Capsule.dr, 60 MG PO HS, (Reported) Entered as Reported by: RACHEL DOUGLASS on 06/19/19 09 Multivitamin (Multivitamins) 1 Each Tablet, 1 TAB PO DAILY, (Reported) Entered as Reported by: RACHEL DOUGLASS on 06/19/19 09 Pantoprazole Sodium (Pantoprazole Sodium) 40 Mg Tablet.dr, 40 MG PO DAILY Prescribed by: GALLO HENDRIX on 06/19/19 111 Triamcinolone Acet (Triamcinolone Acetonide 0.1% Cream) 15 Gm Cr, TOP BID PRN for RASH, (Reported) Entered as Reported by: RACHEL DOUGLASS on 06/19/19 09 Review of Systems Review of Systems Constitutional: No chills, No diaphoresis, No dizziness, No fever EENTM: No Symptoms Reported Respiratory: No Symptoms Reported Cardiovascular: No Symptoms Reported Gastrointestinal: See HPI Genitourinary: No Symptoms Reported Musculoskeletal: no symptoms reported Skin: no symptoms reported Psychiatric/Neurological: No Symptoms Reported Endocrine: No Symptoms Reported Hematologic/Lymphatic: Denies Blood Clots, Denies Easy Bleeding, Denies Easy Bruising Past [id number] Hx Patient Social History Tobacco Use?: No Use of E-Cig and/or Vaping dev: No Substance use?: No Alcohol Use?: No Seasonal Allergies Seasonal Allergies: No Past Medical History Surgery/Hospitalization HX: sections, hysterectomy, coronary artery disease with stent Surgeries: Yes Section, Coronary Stent, Hysterectomy Respiratory: No Cardiac: Yes Coronary Artery Disease, High Cholesterol, Hypertension Neurological: No 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 oz. kg; 38.82 BMI Method: General Appearance: WD/WN, no apparent distress HEENT: PERRL/EOMI, pharynx normal Neck: non-tender, full range of motion, supple, normal inspection Respiratory: chest non-tender, lungs clear, normal breath sounds, no respiratory distress, no accessory muscle use Cardiovascular: normal peripheral pulses, regular rate, rhythm Gastrointestinal: normal bowel sounds, soft, no pulsatile mass; No distended, No guarding, No rebound; tenderness (Mild increase tenderness to palpation along the left flank, right flank, epigastric area.) Rectal: normal rectal tone; No hemorrhoids, No mass, No tenderness; other (No stool palpated or seen on my glove after digital rectal exam. No bright red blood or obvious bleeding currently.) Extremities: normal range of motion, non-tender, normal capillary refill Back: no CVA tenderness Neurologic/Psychiatric: alert, oriented x 3 Skin: normal color, warm/dry Progress/Results/Core Measures Results/Orders Lab Results Laboratory Tests Test 09/07/22 11:51 09/07/22 12:55 Range/Units White Blood Count 12.6 H 4.3-11.0 10^3/uL Red Blood Count 5.39 H 3.80-5.11 10^6/uL Hemoglobin 14.9 11.5-16.0 g/dL Hematocrit 46 35-52 % Mean Corpuscular Volume 85 80-99 fL Mean Corpuscular Hemoglobin 28 25-34 pg Mean Corpuscular Hemoglobin Concent 33 32-36 g/dL Red Cell Distribution Width 13.8 10.0-14.5 % Platelet Count 395 130-400 10^3/uL Mean Platelet Volume 9.3 9.0-12.2 fL Immature Granulocyte % (Auto) 0 % Neutrophils (%) (Auto) 69 42-75 % Lymphocytes (%) (Auto) 16 12-44 % Monocytes (%) (Auto) 9 0-12 % Eosinophils (%) (Auto) 4 0-10 % Basophils (%) (Auto) 1 0-10 % Neutrophils # (Auto) 8.7 H 1.8-7.8 10^3/uL Lymphocytes # (Auto) 2.0 1.0-4.0 10^3/uL Monocytes # (Auto) 1.2 H 0.0-1.0 10^3/uL Eosinophils # (Auto) 0.6 H 0.0-0.3 10^3/uL Basophils # (Auto) 0.1 0.0-0.1 10^3/uL Immature Granulocyte # (Auto) 0.0 0.0-0.1 10^3/uL Prothrombin Time 13.2 12.2-14.7 SEC INR Comment 1.0 0.8-1.4 Activated Partial Thromboplast Time 28 24-35 SEC Sodium Level 138 135-145 MMOL/L Potassium Level 4.5 3.6-5.0 MMOL/L Chloride Level 102 98-107 MMOL/L Carbon Dioxide Level 26 21-32 MMOL/L Anion Gap 10 5-14 MMOL/L Blood Urea Nitrogen 14 7-18 MG/DL Creatinine 0.84 0.60-1.30 MG/DL Estimat Glomerular Filtration Rate 74 BUN/Creatinine Ratio 17 Glucose Level 149 H 70-105 MG/DL Calcium Level 9.5 8.5-10.1 MG/DL Corrected Calcium 9.3 8.5-10.1 MG/DL Total Bilirubin 0.3 0.1-1.0 MG/DL Aspartate Amino Transf (AST/SGOT) 15 5-34 U/L Alanine Aminotransferase (ALT/SGPT) 13 0-55 U/L Alkaline Phosphatase 132 40-136 U/L Total Protein 7.2 6.4-8.2 GM/DL Albumin 4.2 3.2-4.5 GM/DL Lipase 36 8-78 U/L Urine Color YELLOW Urine Clarity CLEAR Urine pH 6.0 5-9 Urine Specific [place] 1.010 L 1.016-1.022 Urine Protein NEGATIVE NEGATIVE Urine Glucose (UA) NEGATIVE NEGATIVE Urine Ketones NEGATIVE NEGATIVE Urine Nitrite NEGATIVE NEGATIVE Urine Bilirubin NEGATIVE NEGATIVE Urine Urobilinogen 0.2 < = 1.0 MG/DL Urine Leukocyte Esterase NEGATIVE NEGATIVE Urine RBC (Auto) NEGATIVE NEGATIVE Urine RBC NONE /HPF Urine WBC 0-2 /HPF Urine Squamous Epithelial Cells 0-2 /HPF Urine Crystals NONE /LPF Urine Bacteria NEGATIVE /HPF Urine Casts NONE /LPF Urine Mucus NEGATIVE /LPF Urine Culture Indicated NO My Orders Orders - PATRICIO NICHOLS MD Comprehensive Metabolic Panel (09/07/22 11:51) Lipase (09/07/22 11:51) Ua Culture If Indicated (09/07/22 11:51) Ed Iv/Invasive Line Start (09/07/22 11:51) Cbc With Automated Diff (09/07/22 11:51) Ct Abdomen/Pelvis W (09/07/22 11:51) Ns Iv 1000 Ml (Sodium Chloride 0.9%) (09/07/22 11:51) Protime With Inr (09/07/22 11:51) Partial Thromboplastin Time (09/07/22 11:51) Iohexol Injection (Omnipaque 350 Mg/Ml 1 (09/07/22 13:15) Received Contrast (Hold Metformin- Contr (09/07/22 13:15) Ns (Ivpb) (Sodium Chloride 0.9% Ivpb Bag (09/07/22 13:15) Medications Given in ED Current Medications Medications Dose Ordered Sig/Mary Route Start Time Stop Time Status Last Admin Dose Admin Iohexol 100 ml ONCE ONCE IV 09/07/22 13:15 09/07/22 13:16 DC 09/07/22 13:15 80 ML Sodium Chloride 100 ml ONCE ONCE IV 09/07/22 13:15 09/07/22 13:16 DC 09/07/22 13:15 100 ML Vital Signs/I&O 09/07/22 11:56 Temp 35.8 Pulse 97 Resp 18 B/P (MAP) 187/89 (121) Pulse Ox 94 O2 Delivery Room Air Progress Progress Note #1: Progress Note Potential life-threatening conditions of diverticulitis with perforation, bowel obstruction, acute GI bleeding, colon mass, rectal mass, colon cancer. Patient states that she has never had a colonoscopy. She states that currently her pain is a mild aching and approximately 4 out of 10. It increases slightly with palpation but is not severe enough that she felt the need for any pain medicine. Obtain peripheral IV access to get complete blood count to look for anemia or coagulopathy or elevated white blood cell count for infection, comprehensive metabolic profile to look for acute electrolyte imbalance, renal failure, hepatic failure, clotting factors to look for coagulopathy, lipase for pancreatitis. Urinalysis to look for signs of infection and dehydration. Ordered normal saline 1 L IV fluid bolus for hydration. Discussed option of medicine for pain such as Toradol as an NSAID or Bentyl as an antispasmodic or fentanyl was a narcotic. Patient stated that her pain was severe enough that she felt the need for any pain medicine currently. Counseled to let us know if she had increased pain or things changed where she felt she did need medicine. Order CT scan of the abdomen and pelvis with IV contrast provided her renal function is adequate for administering IV contrast. This will help evaluate for potential diverticulitis, perforation, bowel mass, obstruction. Unable to perform bedside occult stool testing as she did not have stool in rectal vault on physical exam. Progress Note #2: Time: 12:19 Progress Note patient reports symptoms have not worsened and she did not feel that pain medicine was needed. She has had no further bloody stools here in the ED. Blood count showed WBC at 12.6, just above normal upper limit range. Hemoglobin was not anemic with a 14.9 value. Metabolic profile shows mild elevationof glucose to 149 with normal Creatinine of 0.84 and BUN 14. With her not having elevation of BUN that helps point away from her gut digesting red blood cells. If the gut is digesting RBC then she would have increased BUN level as a byproduct of the body breaking down the hemoglobin. Awaiting CT scan of abdomen/pelvis with IV contrast to look for mass or perforation or diverticulitis. Progress Note #3: Time: 13:14 Progress Note I personally reviewed and interpreted the abdomen and pelvis CT scan with IV contrast and did not appreciate acute perforation, diverticulitis, colonic mass. Awaiting radiology report to review and will update patient after this. Progress Note #4: Time: 14:26 Progress Note I reviewed the radiologist report of the CT scan of the abdomen and pelvis with IV contrast and it did not show any acute diverticulitis, abdominal mass, perforation. Discussed lab results and imaging findings with the patient and family. As she is not showing signs of severe anemia or CT imaging with diverticulitis, mass, inflammatory process it was felt that patient was safe to be discharged home and work with PCP and surgeon for outpatient evaluation. She would benefit from endoscopy to look for a source of rectal bleeding and bright red blood per rectum. Counseled on return precautions if she has worsening symptoms or more bleeding to the point that she is getting dizzy and lightheaded then she should return or seek additional evaluation. Prescription sent to the pharmacy for dicyclomine 10 mg p.o. every 6 hours as needed abdominal spasm, cramping. Encouraged to increase fiber in the diet to help with keeping stools loose and soft. If she continues to have constipation issues then taking MiraLAX or laxative of her choice to help keep the stools more soft and regular. Increase fluid intake. Call PCP and/or surgeon to arrange follow-up and likely endoscopy. Counseled to hold the baby aspirin she currently is taking and it is okay if she has meloxicam for arthritis pain. Diagnostic Imaging Diagonstic Imaging: CT Plain Films/CT/US/NM/MRI: abdomen, pelvis Comments [facility], [place] NAME: [facility] REC#: [id number] PT STATUS: REG ER : 1950 PHYSICIAN: PATRICIO NICHOLS MD ADMIT DATE: 09/07/22/ER FS Signed Date of Exam:09/07/22 CT ABDOMEN/PELVIS W EXAMINATION: CT abdomen and pelvis with intravenous contrast. TECHNIQUE: Multiple contiguous axial images were obtained through the abdomen and pelvis after the uneventful administration of intravenous contrast. All CT scans use one or more of the following dose optimizing techniques: automated exposure control, MA and/or KvP adjustment based on patient size and exam type or iterative reconstruction. HISTORY: Abdominal pain. Bloody stools. COMPARISON: None available. FINDINGS: The heart is prominent. The included lung bases are clear. Cysts are noted in the liver. No enhancing hepatic lesions. The portal vein is patent. The gallbladder is nondistended. The spleen, pancreas, adrenal glands, and kidneys have a normal appearance. There is no pathologically enlarged mesenteric or retroperitoneal adenopathy. The bowel loops are nondilated. There is no free fluid or free air. No acute osseous abnormalities. There is calcified aortic and iliac atherosclerotic plaque without aneurysm. Ureters and bladder are grossly normal. There is no free air, loculated collection, or adenopathy in the pelvis. IMPRESSION: 1. No acute abnormalities in the abdomen and pelvis. No bowel obstruction, free fluid, or free air. 2. Cardiomegaly. Dictated by: Dictated on workstation # [id number] Dict: 09/07/22 1326 Trans: 09/07/22 1330 CVB [id number] Interpreted by: GARCIA PANDYA DO Electronically signed by: GARCIA PANDYA DO 09/07/22 1330 Reviewed: Reviewed by Me (I reviewed radiologist report at 1336) Departure Impression Primary Impression: Bright red blood per rectum Additional Impression: Abdominal cramping Disposition: HOME, SELF-CARE Condition: Stable Departure-Patient Inst. Decision time for Depature: 14:33 Referrals: TOMMIE CORRIGAN MD (PCP) Primary Care Physician HEMA MUÑIZ MD Patient Instructions: Abdominal Pain, Adult ED, Bloody Stools, Adult ED, High Fiber Diet Add. Discharge Instructions: Follow a high fiber diet to help keep stools soft and regular. Continue Miralax or laxative if having hard constipated stools. Drink more water and fluids to help with hydration. Check back with your doctor and they will ultimately need to have you get a colonoscopy or scope to look for source of bleeding. Dr. Muñiz is the surgeon engineering consultant for [facility] today and you could follow up with him for colonoscopy or evaluation of the rectal bleeding. Return or seek medical care again if you have worsening pain, fever over 101 F, bleeding to the point that you are getting dizzy or light headed. All discharge instructions reviewed with patient and/or family. Voiced unde rstanding. Scripts Dicyclomine HCl (Dicyclomine HCl) 10 Mg Capsule 10 MG PO Q6H PRN for abdominal cramping/spasm for 5 Days, #20 CAP 0 Refills Prov: PATRICIO NICHOLS MD 09/07/22 PATRICIO NICHOLS MD Sep 07, 2022 11:55
[2022-09-07 11:56] VITALS: BP 187/89
[2022-09-07 11:58] LABS: BASOPHILS # (AUTO) 0.1 10^3/uL (0.0-0.1); BASOPHILS % (AUTO) 1 % (0-10); EOSINOPHILS # (AUTO) 0.6 10^3/uL (0.0-0.3); EOSINOPHILS % (AUTO) 4 % (0-10); HEMATOCRIT 46 % (35-52); HEMOGLOBIN 14.9 g/dL (11.5-16.0); LYMPHOCYTES % (AUTO) 16 % (12-44); MEAN CORPUSCULAR HEMOGLOBIN 28 pg (25-34); MEAN CORPUSCULAR HGB CONC 33 g/dL (32-36); MEAN CORPUSCULAR VOLUME 85 fL (80-99); MEAN PLATELET VOLUME 9.3 fL (9.0-12.2); MONOCYTES # (AUTO) 1.2 10^3/uL (0.0-1.0); MONOCYTES % (AUTO) 9 % (0-12); NEUTROPHILS # (AUTO) 8.7 10^3/uL (1.8-7.8); NEUTROPHILS % (AUTO) 69 % (42-75); PLATELET COUNT 395 10^3/uL (130-400); WHITE BLOOD COUNT 12.6 10^3/uL (4.3-11.0)
[2022-09-07 12:11] LABS: PROTHROMBIN TIME PATIENT 13.2 SEC (12.2-14.7)
[2022-09-07 12:16] LABS: ALBUMIN 4.2 GM/DL (3.2-4.5); BILIRUBIN,TOTAL 0.3 MG/DL (0.1-1.0); CALCIUM 9.5 MG/DL (8.5-10.1); CREATININE SERUM 0.84 MG/DL (0.60-1.30); POTASSIUM 4.5 MMOL/L (3.6-5.0); TOTAL PROTEIN 7.2 GM/DL (6.4-8.2)
[2022-09-07 13:02] LABS: BILIRUBIN,URINE NEGATIVE (NEGATIVE); CLARITY,URINE CLEAR; COLOR,URINE YELLOW; GLUCOSE, URINE (UA) NEGATIVE (NEGATIVE); KETONES,URINE NEGATIVE (NEGATIVE); LEUKOCYTE ESTERASE ,URINE NEGATIVE (NEGATIVE); NITRITE,URINE NEGATIVE (NEGATIVE); PROTEIN,URINE NEGATIVE (NEGATIVE)
[2022-09-07 13:07] LABS: BACTERIA,URINE NEGATIVE /HPF; SQUAMOUS EPITHELIAL CELL,UR 0-2 /HPF; WBC,URINE 0-2 /HPF
[2022-09-07] MEDS ORDERED: NS 100 ML (IVPB) BAG IV ONE (13:15)
[2022-09-07] MEDS ORDERED: IOHEXOL 350 MG/ML 100 ML (OMNIPAQUE 350) VIAL IV ONE (13:15)
[2022-09-07] MEDS ORDERED: HOLD METFORMIN - RECEIVED CONTRAST 20 ML VIAL IV SCH (13:15)
--- NOTE | 2022-09-07 13:30 | Diagnostic Imaging Report ---
EXAMINATION: CT abdomen and pelvis with intravenous contrast. TECHNIQUE: Multiple contiguous axial images were obtained through the abdomen and pelvis after the uneventful administration of intravenous contrast. All CT scans use one or more of the following dose optimizing techniques: automated exposure control, MA and/or KvP adjustment based on patient size and exam type or iterative reconstruction. HISTORY: Abdominal pain. Bloody stools. COMPARISON: None available. FINDINGS: The heart is prominent. The included lung bases are clear. Cysts are noted in the liver. No enhancing hepatic lesions. The portal vein is patent. The gallbladder is nondistended. The spleen, pancreas, adrenal glands, and kidneys have a normal appearance. There is no pathologically enlarged mesenteric or retroperitoneal adenopathy. The bowel loops are nondilated. There is no free fluid or free air. No acute osseous abnormalities. There is calcified aortic and iliac atherosclerotic plaque without aneurysm. Ureters and bladder are grossly normal. There is no free air, loculated collection, or adenopathy in the pelvis. IMPRESSION: 1. No acute abnormalities in the abdomen and pelvis. No bowel obstruction, free fluid, or free air. 2. Cardiomegaly. Dictated by: Dictated on workstation # [id number]
[2022-09-07] MEDS ORDERED: DICY10CA12 PO (14:37)
== END 2022-09-07 14:50 | disposition home or self-care (01) ==
LOC: EDUNIT# 11:41 → ER FS 11:43
DX: K62.5 Hemorrhage of anus and rectum (principal)
CPT/HCPCS: 36415; 74177; 80053; 81000; 83690; 85025; 85610; 85730; 99284; Q9967